=== PATIENT | female | born 1985 | race Asian ===

== ENCOUNTER 2016-06-25 22:10 | Emergency (ER) | payer OTHER ==
[~2016-06-25] VITALS: Ht 167.6 cm; Wt 107.5 kg
[2016-06-25] MEDS ORDERED: IRON325 MG OR (22:56)
[2016-06-25] MEDS ORDERED: PRENATAL1 T10 PO (22:56)
[2016-06-25 23:36] LABS: PLATELET COUNT 369 K/uL (152-353)
== END 2016-06-26 00:09 | disposition home or self-care (01) ==
LOC: ED 22:10
DX: R10.84 Generalized abdominal pain (principal); Z33.1 Pregnant state, incidental
CPT/HCPCS: 36415; 81000; 84702; 85027; 99283

== ENCOUNTER 2021-10-13 15:34 | Outpatient (CLI) | payer BC ==
[~2021-10-13 15:34] MED LIST: IRON325 MG OR; PRENATAL1 T10 PO
== END 2021-10-13 19:53 | disposition home or self-care (01) ==
LOC: US 15:34
PROVIDERS: ATTEND Nurse Practitioner Family
DX: R10.9 Unspecified abdominal pain (principal); R10.811 Right upper quadrant abdominal tenderness; R10.816 Epigastric abdominal tenderness

== ENCOUNTER 2021-10-17 09:29 | Outpatient (CLI) | payer BC | END 2021-10-17 21:16 | disposition home or self-care (01) | LOC: US 09:29 | PROVIDERS: ATTEND Nurse Practitioner Family | DX: R93.5 Abnormal findings on diagnostic imaging of other abdominal regions, including retroperitoneum (principal); R10.9 Unspecified abdominal pain ==

== ENCOUNTER 2021-11-17 09:25 | Outpatient (CLI) | payer BC | END 2021-11-17 18:56 | disposition home or self-care (01) | LOC: CT 09:25 | PROVIDERS: ATTEND Nurse Practitioner Family | DX: R10.9 Unspecified abdominal pain (principal); R93.5 Abnormal findings on diagnostic imaging of other abdominal regions, including retroperitoneum ==